=== PATIENT | female | born 1980 | race Caucasian/White ===

== ENCOUNTER 2024-06-29 15:31 | Emergency (ER) | payer MEDICAID ==
[~2024-06-29] VITALS: Ht 167.6 cm; Wt 70.0 kg
[2024-06-29 15:38] VITALS: O2SAT 100
[2024-06-29] MEDS: HYDROCODONE/ACETAMINOPHEN 5/325MG TABLET PO ONE (17:19)
[2024-06-29] MEDS: IBUPROFEN 600MG TABLET PO ONE (17:20)
[2024-06-29] MEDS: METHOCARBAMOL 500MG TABLET PO ONE (17:20)
[2024-06-29] MEDS ORDERED: LIDO700A30 TP (17:38)
[2024-06-29] MEDS ORDERED: IBUP-2029 MT (17:38)
[2024-06-29] MEDS ORDERED: METH-653 MT (17:38)
[2024-06-29 17:41] VITALS: BP 100/68; PULSE 79; RESP 16; TEMP 36.7; O2SAT 99
== END 2024-06-29 18:10 | disposition home or self-care (01) ==
LOC: ER 15:31
DX: S13.4XXA Sprain of ligaments of cervical spine, initial encounter (principal); S43.402A Unspecified sprain of left shoulder joint, initial encounter; Z79.899 Other long term (current) drug therapy; Z85.028 Personal history of other malignant neoplasm of stomach; V43.52XA Car driver injured in collision with other type car in traffic accident, initial encounter; Y93.89 Activity, other specified; Y92.89 Other specified places as the place of occurrence of the external cause; Y99.8 Other external cause status
CPT/HCPCS: 73030; 73080; 73110; 99284